=== PATIENT | male | born 2000 | race Two or more races ===

== ENCOUNTER 2018-11-19 08:57 | Emergency (ER) | payer MEDICAID, OTHER ==
[~2018-11-19] VITALS: Ht 170.2 cm; Wt 54.4 kg
[2018-11-19 09:25] VITALS: BP 125/85
[2018-11-19] MEDS ORDERED: KETOROLAC TROMETH 30 MG/ML 1ML VIAL IV ONE (09:45)
== END 2018-11-19 10:25 | disposition home or self-care (01) ==
LOC: ER 08:57 → EDBD 08:57 → ER 10:25
DX: S46.812A Strain of other muscles, fascia and tendons at shoulder and upper arm level, left arm, initial encounter (principal); V49.49XA Driver injured in collision with other motor vehicles in traffic accident, initial encounter; Y93.89 Activity, other specified; Y99.8 Other external cause status; Y92.89 Other specified places as the place of occurrence of the external cause
CPT/HCPCS: 73010; 96374; 99283; J1885

== ENCOUNTER 2019-12-24 08:56 | Emergency (ER) | payer MEDICAID ==
[~2019-12-24] VITALS: Ht 170.2 cm; Wt 56.7 kg
[2019-12-24 09:28] LABS: Basophils # (auto) 0 10 ^3/uL (0-0.2); Basophils % (auto) 0.4 % (0.0-2.0); Eosinophils # (auto) 0.2 10 ^3/uL (0-0.8); Eosinophils % (auto) 2.6 % (0.0-7.0); Hematocrit 42.8 % (41.0-53.0); Hemoglobin 14.3 g/dL (13.5-17.5); Lymphocytes # (auto) 1.6 10 ^3/uL (0.4-5.4); Lymphocytes % (auto) 19.2 % (10.0-50.0); Mean Corpuscular Hemoglobin 27.3 pg (28.0-32.0); Mean Corpuscular Hgb Conc. 33.4 g/dL (32.0-36.0); Mean Corpuscular Volume 81.6 fL (80.0-100.0); Monocytes # (auto) 0.9 10 ^3/uL (0-1.3); Monocytes % (auto) 10.3 % (0.0-12.0); Neutrophils # (auto) 5.6 10 ^3/uL (1.6-8.6); Neutrophils % (auto) 67.5 % (37.0-80.0); Nucleated Red Blood Cells % 0.1 %; Platelet Count (auto) 334 10^3/uL (140-450); Red Blood Cells 5.25 10^6/uL (4.5-5.90); White Blood Cell 8.3 10^3/uL (4.4-10.8)
[2019-12-24 09:48] LABS: Albumin 4.6 g/dL (3.4-5.0); BUN/Creatinine Ratio 17.6; Calcium 9.4 mg/dL (8.5-10.1); Potassium 3.9 mmol/L (3.5-5.1)
[2019-12-24 09:51] LABS: Bilirubin, Total 0.4 mg/dL (0.2-1.0); Total Protein 8.4 g/dL (6.4-8.2)
[2019-12-24 12:40] LABS: Urine Bacteria NONE SEEN /hpf (None Seen); Urine Blood Negative /uL (Negative); Urine Mucus FEW (None Seen); Urine WBC <1 /hpf (0 - 3)
[2019-12-24 13:05] VITALS: BP 102/66
== END 2019-12-24 13:15 | disposition home or self-care (01) ==
LOC: ER 08:56
DX: K92.2 Gastrointestinal hemorrhage, unspecified (principal); K64.9 Unspecified hemorrhoids
CPT/HCPCS: 36415; 74176; 80053; 81001; 85025